=== PATIENT | male | born 1935 | race Two or more races ===

== ENCOUNTER 2019-01-03 18:37 | Emergency (ER) | payer MEDICARE, MEDICAID ==
[~2019-01-03] VITALS: Ht 170.2 cm; Wt 86.4 kg
[2019-01-03 18:38] VITALS: BP 165/58
[2019-01-03] MEDS ORDERED: PRAS10TA4 PO (19:54)
[2019-01-03] MEDS ORDERED: DEXL60CA2 PO (19:54)
[2019-01-03] MEDS ORDERED: LISI30TA4 PO (19:54)
[2019-01-03] MEDS ORDERED: CARV12.52 PO (19:54)
[2019-01-03] MEDS ORDERED: TRIA15CR2 TP (19:54)
[2019-01-03] MEDS ORDERED: TAMS-11 PO (19:54)
[2019-01-03] MEDS ORDERED: TRAZ50TA66 PO (19:54)
[2019-01-03] MEDS ORDERED: GABA100C PO (19:54)
[2019-01-03] MEDS ORDERED: FINA5TAB4 PO (19:54)
[2019-01-03] MEDS ORDERED: ROSU10TA2 PO (19:54)
[2019-01-03] MEDS ORDERED: ASPI-650 PO (19:54)
== END 2019-01-03 20:33 | disposition home or self-care (01) ==
LOC: ED 20:22
DX: S82.64XA Nondisplaced fracture of lateral malleolus of right fibula, initial encounter for closed fracture (principal); I51.9 Heart disease, unspecified; W01.0XXA Fall on same level from slipping, tripping and stumbling without subsequent striking against object, initial encounter; Y93.01 Activity, walking, marching and hiking; Y92.098 Other place in other non-institutional residence as the place of occurrence of the external cause; Y99.8 Other external cause status
CPT/HCPCS: 29515; 99283